=== PATIENT | male | born 1970 | race African-American/Black ===

== ENCOUNTER 2018-01-02 15:48 | Emergency (ER) | payer OTHER ==
[~2018-01-02] VITALS: Ht 185.4 cm; Wt 124.1 kg
[~2018-01-02 15:48] MED LIST: DOXYCYCLINE 10100 MG PO; EFFEXOR-XR150 MG PO; HCTZ 25MG TAB25 MG PO; NORCO 325 MG-51 TAB PO; PHENERGAN W/CO120 ML PO; PRAVACHOL80 MG PO; PREDNISONE20 MG PO; ULTRAM 50MG TAB50 MG PO; VENTOLIN0.09 MG IH; VITAMIN D1000 IU PO; WELLBUTRIN 100100 MG PO
[2018-01-02 15:59] VITALS: TEMP 98.6
[2018-01-02] MEDS ORDERED: NYSTATIN OR100 MU/ML PO (16:37)
[2018-01-02] MEDS ORDERED: ZITHROMAX Z PA250 MG PO (16:37)
[2018-01-02 17:01] VITALS: BP 137/90; PULSE 71
== END 2018-01-02 17:01 | disposition home or self-care (01) ==
LOC: COL.ER 15:48
DX: J06.9 Acute upper respiratory infection, unspecified (principal); B37.9 Candidiasis, unspecified; I10 Essential (primary) hypertension; F17.210 Nicotine dependence, cigarettes, uncomplicated

== ENCOUNTER 2020-03-12 16:04 | Emergency (ER) | payer OTHER ==
[~2020-03-12] VITALS: Ht 368.3 cm; Wt 12.7 kg
[~2020-03-12 16:04] MED LIST changes: +NYSTATIN OR100 MU/ML PO; -VITAMIN D1000 IU PO; +VITAMIN D31000 I1 PO; +ZITHROMAX Z PA250 MG PO
[2020-03-12 16:09] VITALS: TEMP 98.4
[2020-03-12] MEDS ORDERED: COZAAR100 MG PO (16:41)
[2020-03-12] MEDS ORDERED: PROAIR HFA0.09 MG/AC IH (16:41)
[2020-03-12 16:43] LABS: BASO # 0.1 (0.0-0.2); BASO % 0.5 % (0.0-2.0); EOS # 0.6 (0.0-0.7); EOS % 6.5 % (0-4.0); GRAN # 4.4 (1.4-6.5); GRAN % 47.2 % (42.2-75.2); HEMATOCRIT 43.6 % (42.0-52.0); HEMOGLOBIN 14.3 g/dl (13.5-18.0); LYMPH # 3.3 (1.2-3.4); LYMPH % 35.9 % (20.0-51.0); MEAN CELL VOLUME 96 fl (80.0-100.0); MEAN CORPUSCULAR HEMOGLOBIN 31 pg (27.0-31.0); MEAN CORPUSCULAR HGB CONC 33 g/dl (33.0-37.0); MEAN PLATELET VOLUME 10.4 fl (7.4-10.4); MONO # 0.8 (0.1-0.6); MONO % 9.1 % (1.7-9.3); PLATELET COUNT 279 K/mm3 (130-400); RED BLOOD COUNT 4.56 M/mm3 (4.20-5.60); REDCELL DISTRIBUTION WIDTH-CV 13.1 % (11.5-14.5)
[2020-03-12 16:54] LABS: ALANINE AMINOTRANSFERASE 79 U/L (4-49); ALBUMIN 4.1 gm/dL (3.5-5.0); ALKALINE PHOSPHATASE 58 U/L (50-136); ANION GAP 6 mmol/L (7-16); AST,SGOT 86 U/L (15-37); BILIRUBIN,TOTAL 0.4 mg/dL (0.0-1.0); BLOOD UREA NITROGEN 14 mg/dL (9-20); CALCIUM 8.9 mg/dL (8.4-10.2); CARBON DIOXIDE 27 mmol/L (22-30); CHLORIDE 105 mmol/L (98-107); GLUCOSE 90 mg/dL (74-106); POTASSIUM 3.5 mmol/L (3.4-5.0); SODIUM 139 mmol/L (137-145); TOTAL PROTEIN 7.1 gm/dL (6.4-8.2)
[2020-03-12 17:01] LABS: INR 0.9 (0.8-3.0)
[2020-03-12 17:06] LABS: TROPONIN-I < 0.012 ng/mL (0.000-0.035)
[2020-03-12] MEDS ORDERED: PREDNISONE20 MG PO (17:37)
[2020-03-12] MEDS ORDERED: ZYRTEC 10MG10 MG PO (17:37)
[2020-03-12] MEDS ORDERED: IPRATROPIUM BROM3 M1 IH (17:37)
[2020-03-12] MEDS ORDERED: SINGULAIR 110 MG/TAB PO (17:37)
[2020-03-12] MEDS ORDERED: TESSALON P100 MG/CAP PO (17:37)
[2020-03-12 17:45] VITALS: BP 162/93; PULSE 114
== END 2020-03-12 18:03 | disposition home or self-care (01) ==
LOC: COL.ER 16:04
PROVIDERS: Nurse Practitioner Primary Care
DX: J98.01 Acute bronchospasm (principal); I10 Essential (primary) hypertension; F17.200 Nicotine dependence, unspecified, uncomplicated; Z79.52 Long term (current) use of systemic steroids
CPT/HCPCS: J1100; J7030

== ENCOUNTER → 2020-04-09 | Outpatient (REF) ==
[~2020-04-09] MED LIST changes: +COZAAR100 MG PO; +IPRATROPIUM BROM3 M1 IH; +PROAIR HFA0.09 MG/AC IH; +SINGULAIR 110 MG/TAB PO; +TESSALON P100 MG/CAP PO; +ZYRTEC 10MG10 MG PO
== END ==
LOC: WSOH 13:02
DX: U07.1 COVID-19 (principal)

== ENCOUNTER → 2021-12-04 | Outpatient (CLI) | payer OTHER | LOC: COL.RAD 07:43 | DX: M54.50 Low back pain, unspecified (principal) ==